=== PATIENT | female | born 1990 | race Hispanic/Latino ===

== ENCOUNTER 2019-03-17 19:19 | Emergency (ER) | payer OTHER ==
[2019-03-17 19:46] LABS: APPEARANCE,URINE Cloudy (CLEAR); BILIRUBIN,URINE Negative (NEGATIVE); COLOR,URINE Yellow (YELLOW); GLUCOSE, URINE (UA) Negative (NEGATIVE); KETONES,URINE Negative (NEGATIVE); LEUKOCYTE ESTERASE ,URINE Trace (NEGATIVE); NITRATE,URINE Negative (NEGATIVE); OCCULT BLOOD,URINE Small (NEGATIVE); PH,URINE 5.5 (5.0-8.0); PROTEIN,URINE POS 1+ mg/dL (NEGATIVE)
[2019-03-17 19:54] LABS: BACTERIA,URINE Few /HPF (None Seen); RBC,URINE 0-1 /HPF (0-1); SQUAMOUS EPITHELIAL CELL,UR Moderate /HPF (0-2)
[2019-03-17 20:00] LABS: HCG,QUAL RESULT NEGATIVE (NEGATIVE)
[2019-03-17 20:06] LABS: BASOPHILS % (AUTO) 0.6 % (0.0-5.0); EOSINOPHILS % (AUTO) 0.4 % (0.0-8.0); MEAN CORPUSCULAR HEMOGLOBIN 24.5 pg (27.0-33.0); MEAN CORPUSCULAR HGB CONC 32.2 g/dL (32.0-36.0); MEAN CORPUSCULAR VOLUME 76.1 fL (79-99); MONOCYTES % (AUTO) 6.5 % (3.0-13.0); NEUTROPHILS % (AUTO) 73.5 % (40.0-77.0); NUCLEATED RED BLOOD CELLS 0.1 % (0.0-0.19); PLATELET COUNT (AUTO) 316 K/uL (130-400); RED BLOOD CELL COUNT(AUTO) 4.73 MIL/uL (4.00-5.50); RED CELL DISTRIBUTION WIDTH 14.7 % (11.0-15.5); WHITE BLOOD COUNT (AUTO) 11.8 K/uL (4.8-10.8)
[2019-03-17 20:09] LABS: RAPID GROUP A STREP NEGATIVE (NEGATIVE)
[2019-03-17 20:15] LABS: CREATININE 0.7 mg/dL (0.5-1.5); POTASSIUM 3.9 mmol/L (3.5-5.1)
[2019-03-17 20:22] LABS: ALBUMIN 3.3 g/dL (3.5-5.0); BILIRUBIN,DIRECT 0.1 mg/dL (0.0-0.3); BILIRUBIN,TOTAL 0.3 mg/dL (0.2-1.0); TOTAL PROTEIN, SERUM 7.2 g/dL (6.0-8.3)
[2019-03-17] MEDS ORDERED: DiphenhydrAMINE HCL 50 MG/ML VIAL ONE (20:51)
[2019-03-17] MEDS ORDERED: KETOROLAC TROMETHAMINE 30MG/ML ONE (20:51)
[2019-03-17] MEDS ORDERED: ONDANSETRON HCL 4 MG/2 ML VIAL ONE (20:51)
[2019-03-17] MEDS ORDERED: METOCLOPRAMIDE 10 MG/2 ML VIAL ONE (20:51)
== END 2019-03-17 21:35 | disposition home or self-care (01) ==
LOC: EDH 19:19
DX: N39.0 Urinary tract infection, site not specified (principal); R51 Headache; Z98.890 Other specified postprocedural states
CPT/HCPCS: 36415; 80048; 80076; 81001; 81025; 83690; 85025; 87804 ×2; 87880; 96374; 96375; 99284; J1200; J1885; J2405; J2765

== ENCOUNTER 2019-10-24 16:53 | Emergency (ER) | payer OTHER ==
[2019-10-24] MEDS ORDERED: CYCLOBENZAPRINE HCL 10 MG TABLET ONE (18:28)
[2019-10-24] MEDS ORDERED: IBUPROFEN 600 MG TABLET ONE (18:28)
== END 2019-10-24 18:47 | disposition home or self-care (01) ==
LOC: EDH 16:53
DX: S13.9XXA Sprain of joints and ligaments of unspecified parts of neck, initial encounter (principal); Z98.890 Other specified postprocedural states; Z87.891 Personal history of nicotine dependence; V49.49XA Driver injured in collision with other motor vehicles in traffic accident, initial encounter; Y93.89 Activity, other specified; Y92.89 Other specified places as the place of occurrence of the external cause; Y99.8 Other external cause status
CPT/HCPCS: 70450; 72125; 81025

== ENCOUNTER 2021-06-02 14:41 | Inpatient (IN) | payer SELFPAY ==
[~2021-06-02] VITALS: Ht 162.6 cm; Wt 86.2 kg
[2021-06-02] MEDS ORDERED: ACETAMINOPHEN 500 MG TABLET PO ONE (15:30)
[2021-06-02] MEDS ORDERED: 0.9%NACL 1000ML 1,000 ML IV ONE ×2 (15:30→17:35)
[2021-06-02 16:18] LABS: BASOPHILS % (AUTO) 0.3 % (0.0-5.0); EOSINOPHILS % (AUTO) 0.3 % (0.0-8.0); HEMATOCRIT 32.7 % (36-48); LYMPHOCYTES % (AUTO) 4.4 % (21.0-51.0); MEAN CORPUSCULAR HEMOGLOBIN 23.1 pg (27.0-33.0); MEAN CORPUSCULAR HGB CONC 31.2 g/dL (32.0-36.0); MEAN CORPUSCULAR VOLUME 74.1 fL (79-99); MONOCYTES % (AUTO) 1.5 % (3.0-13.0); PLATELET COUNT (AUTO) 322 K/uL (130-400); RED BLOOD CELL COUNT(AUTO) 4.41 MIL/uL (4.00-5.50); RED CELL DISTRIBUTION WIDTH 16.5 % (11.0-15.5)
[2021-06-02 16:18] LABS: APPEARANCE,URINE Clear (CLEAR); BILIRUBIN,URINE Negative (NEGATIVE); COLOR,URINE Yellow (YELLOW); GLUCOSE, URINE (UA) Negative (NEGATIVE); KETONES,URINE Negative (NEGATIVE); LEUKOCYTE ESTERASE ,URINE Moderate (NEGATIVE); NITRATE,URINE Negative (NEGATIVE); OCCULT BLOOD,URINE Small (NEGATIVE); PROTEIN,URINE Trace mg/dL (NEGATIVE); UROBILINOGEN,URINE 0.2 mg/dL (0.2-1.0)
[2021-06-02] MEDS ORDERED: CEFTRIAXONE 1G VIAL IVP ONE (16:30)
[2021-06-02 16:31] LABS: BACTERIA,URINE Few /HPF (None Seen); MUCUS,URINE Few LPF (None Seen); SQUAMOUS EPITHELIAL CELL,UR Few /HPF (0-2)
[2021-06-02 16:36] LABS: CREATININE 0.6 mg/dL (0.5-1.5); POTASSIUM 3.4 mmol/L (3.5-5.1)
[2021-06-02 16:41] LABS: ALBUMIN 3.2 g/dL (3.5-5.0); BILIRUBIN,TOTAL 0.4 mg/dL (0.2-1.0); CRP QUANTITATIVE 95.3 mg/L (0.00-9.0)
[2021-06-02] MEDS: 0.9%NACL 1000ML 1,000 ML IV SCH ×2 (18:00→23:35)
[2021-06-02] MEDS ORDERED: ACETAMINOPHEN 325 MG TAB PO PRN (19:30)
[2021-06-02] MEDS ORDERED: LACTULOSE 20 GM/30 ML UDCUP PO PRN (19:30)
[2021-06-02] MEDS: CEFTRIAXONE 1G VIAL IV SCH (19:30)
[2021-06-02] MEDS: LACTATED RINGERS 1000ML 1,000 ML IV SCH (19:36)
[2021-06-02] MEDS: FAMOTIDINE 20MG VIAL IV SCH (21:39)
[2021-06-02] MEDS: MORPHINE 2 MG SYG IV PRN (23:40)
[2021-06-02] MEDS: ONDANSETRON 4MG INJ IV PRN (23:40)
[2021-06-03 00:01] VITALS: BP 113/73
[2021-06-03] MEDS: LACTATED RINGERS 1000ML 1,000 ML IV SCH ×3 (00:13→22:25)
[2021-06-03 03:51] VITALS: BP 124/76
[2021-06-03] MEDS: ONDANSETRON 4MG INJ IV PRN (06:13)
[2021-06-03] MEDS: MORPHINE 2 MG SYG IV PRN (06:14)
[2021-06-03 08:15] VITALS: BP 115/74
[2021-06-03] MEDS: FAMOTIDINE 20MG VIAL IV SCH ×2 (09:02→22:24)
[2021-06-03] MEDS: ACETAMINOPHEN 325 MG TAB PO PRN ×2 (11:13→19:21)
[2021-06-03 12:01] VITALS: BP 114/68
[2021-06-03 16:10] VITALS: BP 122/81
[2021-06-03] MEDS: CEFTRIAXONE 1G VIAL IV SCH (19:12)
[2021-06-03 20:00] VITALS: BP 134/87
[2021-06-03] MEDS: 0.9%NACL 1000ML 1,000 ML IV SCH ×2 (20:17→22:24)
[2021-06-04] VITALS: BP 110/69
[2021-06-04] MEDS: 0.9%NACL 1000ML 1,000 ML IV SCH ×2 (03:39→19:27)
[2021-06-04] MEDS: HYDROCODONE/ACETAMINOPHEN 5/325 MG TAB PO PRN ×3 (03:48→19:27)
[2021-06-04 04:00] VITALS: BP 117/69
[2021-06-04 05:30] LABS: BASOPHILS % (AUTO) 0.5 % (0.0-5.0); HEMATOCRIT 31.9 % (36-48); LYMPHOCYTES % (AUTO) 21.7 % (21.0-51.0); MEAN CORPUSCULAR HEMOGLOBIN 22.7 pg (27.0-33.0); MEAN CORPUSCULAR HGB CONC 30.4 g/dL (32.0-36.0); MEAN CORPUSCULAR VOLUME 74.7 fL (79-99); MONOCYTES % (AUTO) 10.9 % (3.0-13.0); NEUTROPHILS % (AUTO) 65.6 % (40.0-77.0); PLATELET COUNT (AUTO) 329 K/uL (130-400); RED BLOOD CELL COUNT(AUTO) 4.27 MIL/uL (4.00-5.50); RED CELL DISTRIBUTION WIDTH 16.7 % (11.0-15.5); WHITE BLOOD COUNT (AUTO) 8.8 K/uL (4.8-10.8)
[2021-06-04 05:45] LABS: CREATININE 0.5 mg/dL (0.5-1.5); POTASSIUM 3.5 mmol/L (3.5-5.1)
[2021-06-04 07:56] VITALS: BP 107/58
[2021-06-04] MEDS: FAMOTIDINE 20MG VIAL IV SCH ×2 (09:30→20:23)
[2021-06-04] MEDS: LACTATED RINGERS 1000ML 1,000 ML IV SCH ×2 (11:30→21:30)
[2021-06-04 12:00] VITALS: BP 112/70
[2021-06-04 16:26] VITALS: BP 106/69
[2021-06-04] MEDS: CEFTRIAXONE 1G VIAL IV SCH (19:26)
[2021-06-04] MEDS ORDERED: POTASSIUM CHLORIDE 20MEQ/100ML 100 ML IV PRN (19:30)
[2021-06-04] MEDS ORDERED: KCL 20 MEQ ERTAB PO PRN (19:30)
[2021-06-04 20:00] VITALS: BP 127/82
[2021-06-05] VITALS: BP 125/72
[2021-06-05] MEDS: 0.9%NACL 1000ML 1,000 ML IV SCH ×4 (00:16→19:20)
[2021-06-05 04:00] VITALS: BP 121/72
[2021-06-05] MEDS: LACTATED RINGERS 1000ML 1,000 ML IV SCH ×3 (05:03→19:49)
[2021-06-05 06:23] LABS: BASOPHILS % (AUTO) 0.7 % (0.0-5.0); HEMATOCRIT 33.4 % (36-48); MEAN CORPUSCULAR HEMOGLOBIN 22.8 pg (27.0-33.0); MEAN CORPUSCULAR HGB CONC 29.9 g/dL (32.0-36.0); MEAN CORPUSCULAR VOLUME 76.1 fL (79-99); MONOCYTES % (AUTO) 14.7 % (3.0-13.0); NEUTROPHILS % (AUTO) 40.5 % (40.0-77.0); PLATELET COUNT (AUTO) 338 K/uL (130-400); RED BLOOD CELL COUNT(AUTO) 4.39 MIL/uL (4.00-5.50); RED CELL DISTRIBUTION WIDTH 16.4 % (11.0-15.5); WHITE BLOOD COUNT (AUTO) 7.3 K/uL (4.8-10.8)
[2021-06-05 06:35] LABS: CREATININE 0.5 mg/dL (0.5-1.5); POTASSIUM 3.8 mmol/L (3.5-5.1)
[2021-06-05] MEDS: FAMOTIDINE 20MG VIAL IV SCH ×2 (07:47→19:49)
[2021-06-05] MEDS: HYDROCODONE/ACETAMINOPHEN 5/325 MG TAB PO PRN ×2 (07:49→16:39)
[2021-06-05 08:00] VITALS: BP 121/76
[2021-06-05 12:00] VITALS: BP 123/71
[2021-06-05 16:00] VITALS: BP 113/78
[2021-06-05] MEDS: CEFTRIAXONE 1G VIAL IV SCH (19:49)
[2021-06-05 20:00] VITALS: BP 109/71
[2021-06-06] VITALS: BP 119/79
[2021-06-06] MEDS: 0.9%NACL 1000ML 1,000 ML IV SCH (01:54)
[2021-06-06] MEDS: HYDROCODONE/ACETAMINOPHEN 5/325 MG TAB PO PRN (02:43)
[2021-06-06 04:00] VITALS: BP 112/69
[2021-06-06 06:03] LABS: BASOPHILS % (AUTO) 0.8 % (0.0-5.0); EOSINOPHILS % (AUTO) 4.3 % (0.0-8.0); HEMATOCRIT 31.9 % (36-48); LYMPHOCYTES % (AUTO) 43.9 % (21.0-51.0); MEAN CORPUSCULAR HEMOGLOBIN 22.6 pg (27.0-33.0); MEAN CORPUSCULAR HGB CONC 30.7 g/dL (32.0-36.0); MEAN CORPUSCULAR VOLUME 73.5 fL (79-99); MONOCYTES % (AUTO) 10.6 % (3.0-13.0); NEUTROPHILS % (AUTO) 40.1 % (40.0-77.0); PLATELET COUNT (AUTO) 377 K/uL (130-400); RED BLOOD CELL COUNT(AUTO) 4.34 MIL/uL (4.00-5.50); RED CELL DISTRIBUTION WIDTH 15.9 % (11.0-15.5); WHITE BLOOD COUNT (AUTO) 7.7 K/uL (4.8-10.8)
[2021-06-06 06:11] LABS: CREATININE 0.5 mg/dL (0.5-1.5); POTASSIUM 3.5 mmol/L (3.5-5.1)
[2021-06-06 08:00] VITALS: BP 120/86
[2021-06-06] MEDS ORDERED: CEPH500T PO (08:26)
== END 2021-06-06 10:50 | disposition home or self-care (01) | DRG 690 ==
LOC: EDH 14:41 → EDHIP 14:42 → OBSVTOIN 14:42 → 3AH 23:27
PROVIDERS: ADMIT Internal Medicine; ATTEND Internal Medicine
DX: N10 Acute pyelonephritis (principal); E86.0 Dehydration; E66.01 Morbid (severe) obesity due to excess calories; Z20.822 Contact with and (suspected) exposure to COVID-19; Z68.32 Body mass index [BMI] 32.0-32.9, adult; Z87.442 Personal history of urinary calculi; Z83.3 Family history of diabetes mellitus
CPT/HCPCS: 36415; 71045; 74176; 80048; 80053; 81001; 81025; 83605; 84703; 85025; 86140; 87040; 87077; 87088; 87186; 87635; 87804; 87880; C9803; G0378; J0696; J2405; J3490; J7030; J7120